=== PATIENT | male | born 1970 | race Caucasian/White ===

== ENCOUNTER 2020-07-24 18:14 | Emergency (ER) | payer OTHER ==
[~2020-07-24] VITALS: Ht 167.6 cm; Wt 76.2 kg
[~2020-07-24 18:14] MED LIST: Omeprazole20 M1
== END 2020-07-24 21:59 | disposition home or self-care (01) ==
LOC: ER 18:14
DX: R51 Headache (principal); M54.2 Cervicalgia; Z87.891 Personal history of nicotine dependence; W22.8XXA Striking against or struck by other objects, initial encounter; Y92.512 Supermarket, store or market as the place of occurrence of the external cause
CPT/HCPCS: 99283

== ENCOUNTER 2021-06-08 20:31 | Emergency (ER) | payer OTHER ==
[~2021-06-08] VITALS: Ht 167.6 cm; Wt 76.2 kg
== END 2021-06-08 22:32 | disposition home or self-care (01) ==
LOC: ER 20:31
DX: B34.9 Viral infection, unspecified (principal); Z20.822 Contact with and (suspected) exposure to COVID-19; Z87.891 Personal history of nicotine dependence
CPT/HCPCS: 99282

== ENCOUNTER 2021-10-02 23:14 | Emergency (ER) | payer OTHER ==
[~2021-10-02] VITALS: Ht 167.6 cm; Wt 77.1 kg
== END 2021-10-03 00:50 | disposition home or self-care (01) ==
LOC: ER 23:14
DX: T17.228A Food in pharynx causing other injury, initial encounter (principal); Z79.899 Other long term (current) drug therapy
CPT/HCPCS: 96374; 99283-25; J1610